=== PATIENT | female | born 1930 | race African-American/Black ===

== ENCOUNTER 2016-10-08 11:12 | Inpatient (IN) | payer MEDICARE, OTHER ==
[~2016-10-08] VITALS: Ht 157.5 cm; Wt 80.1 kg
[~2016-10-08 11:12] MED LIST: ACET-784 PO; ALEN70TA48 PO; AMLO-512 PO; ASPI81 PO; CLOP75 PO; DONE10TA PO; MEMA10TA11 PO; METO50 PO; MULT-1259 PO; NITR0.4T SL; PANT40TA25 PO; RANO500T3 PO; ROSU20 PO; SERT50TA12 PO
[2016-10-08 12:43] LABS: GLUCOSE,POINT OF CARE 78 MG/DL (70-110)
[2016-10-08] MEDS ORDERED: ALBUTEROL SULFATE 2.5 MG/0.5 ML NEB SOLUTION NEB PRN (13:45)
[2016-10-08] MEDS ORDERED: BISACODYL 10 MG RECTAL RECTAL SUPPOSITORY PR PRN (13:45)
[2016-10-08] MEDS ORDERED: ACETAMINOPHEN 325 MG TABLET PO PRN (13:45)
[2016-10-08] MEDS ORDERED: DEXTROSE 5%-0.45% SODIUM CHL 1,000 ML IV ONE (14:00)
[2016-10-08 14:13] LABS: BASOPHILS % (AUTO) 0.2 % (0.0-2.0); EOSINOPHILS % (AUTO) 1.9 % (1.0-6.0); HEMATOCRIT 38.4 % (36-46); HEMOGLOBIN 12.9 g/dL (12.0-16.0); LYMPHOCYTES # (AUTO) 1.7 K/uL (1.0-4.8); MEAN CORPUSCULAR HEMOGLOBIN 30.7 pg (26.0-34.0); MEAN CORPUSCULAR HGB CONC 33.5 G/dL (31.0-37.0); MEAN CORPUSCULAR VOLUME 92 fL (80-100); MONOCYTES # (AUTO) 0.7 K/uL (0.1-1.0); NEUTROPHILS # (AUTO) 3.9 K/uL (1.8-7.7); NEUTROPHILS % (AUTO) 60.9 % (40.0-70.0); PLATELET COUNT (AUTO) 165 K/uL (150-450); RED BLOOD CELL COUNT(AUTO) 4.19 MIL/uL (4.00-5.20); RED CELL DISTRIBUTION WIDTH 15.8 % (11.5-14.5); WHITE BLOOD COUNT (AUTO) 6.5 K/uL (4.5-11.0)
[2016-10-08] MEDS: ASPIRIN 81 MG CHEWABLE TABLET PO SCH (14:15)
[2016-10-08 14:27] LABS: PROTHROMBIN TIME 10.6 SEC (9.4-11.6)
[2016-10-08] MEDS: AmLODIPine BESYLATE 10 MG TABLET PO SCH (14:27)
[2016-10-08 14:32] LABS: ANION GAP 10 mmol/L (8-16); CALCIUM, TOTAL 9.3 mg/dL (8.8-10.5); CARBON DIOXIDE 25 mmol/L (22-29); CHLORIDE 110 mmol/L (98-107); CREATININE 1.57 mg/dL (0.60-1.30); GLOMERULAR FILTR. RATE CALC 38 mL/min (>60); SODIUM SERUM 145 mmol/L (136-145); UREA NITROGEN, BLOOD 24 mg/dL (7-18)
[2016-10-08 14:42] LABS: B-TYPE NATRIURETIC PEPTIDE 124 pg/mL (0-100)
[2016-10-08 15:02] LABS: ALANINE AMINOTRANSFERASE 20 U/L (12-78); ALBUMIN 2.9 g/dL (3.4-5.0); ASPARTATE AMINOTRANSFERASE 23 U/L (15-37); BILIRUBIN,TOTAL 0.4 mg/dL (0.1-1.0); CREATINE KINASE MB 0.6 ng/mL (0-5); CREATINE KINASE, TOTAL 90 U/L (26-192); TOTAL PROTEIN, SERUM 7.3 g/dL (6.4-8.2)
[2016-10-08 15:50] LABS: APPEARANCE,URINE CLEAR (CLEAR); GLUCOSE, URINE (UA) NEGATIVE (NEGATIVE); KETONES,URINE TRACE mg/dL (NEGATIVE); LEUKOCYTE ESTERASE ,URINE NEGATIVE (NEGATIVE); OCCULT BLOOD,URINE MODERATE (NEGATIVE); PROTEIN,URINE POS 1+ (NEGATIVE)
[2016-10-08 15:53] LABS: ADD UA MICROSCOPIC YES
[2016-10-08 16:00] LABS: SQUAMOUS EPITHELIAL CELL,UR Few /LPF (None Seen); WBC,URINE 0-2 /HPF (0-5)
[2016-10-08] MEDS ORDERED: ASPIRIN 81 MG CHEWABLE TABLET PO ONE (16:30)
[2016-10-08 17:03] VITALS: BP 162/76
[2016-10-08 18:43] VITALS: BP 153/73
[2016-10-08 19:34] VITALS: BP 160/78
[2016-10-08] MEDS: HEPARIN SODIUM,PORCINE 5,000 UNITS/ML VIAL SQ SCH (20:10)
[2016-10-08] MEDS: DOCUSATE SODIUM 100 MG CAPSULE PO SCH (20:10)
[2016-10-08] MEDS: ROSUVASTATIN CALCIUM 10 MG TABLET PO SCH (20:10)
[2016-10-08 23:43] VITALS: BP 158/70
[2016-10-09 04:29] VITALS: BP 158/79
[2016-10-09 05:25] LABS: BASOPHILS # (AUTO) 0.03 K/uL (0.00-0.20); BASOPHILS % (AUTO) 0.3 % (0.0-2.0); EOSINOPHILS # (AUTO) 0.13 K/uL (0.00-0.70); EOSINOPHILS % (AUTO) 1.51 % (1.0-6.0); HEMATOCRIT 39.7 % (36-46); HEMOGLOBIN 13.1 g/dL (12.0-16.0); LYMPHOCYTES # (AUTO) 1.8 K/uL (1.0-4.8); LYMPHOCYTES % (AUTO) 20.8 % (22.0-44.0); MEAN CORPUSCULAR HEMOGLOBIN 30.8 pg (26.0-34.0); MEAN CORPUSCULAR HGB CONC 33.1 G/dL (31.0-37.0); MEAN CORPUSCULAR VOLUME 93 fL (80-100); MONOCYTES # (AUTO) 0.8 K/uL (0.1-1.0); MONOCYTES % (AUTO) 9.5 % (2.0-9.0); NEUTROPHILS # (AUTO) 5.7 K/uL (1.8-7.7); NEUTROPHILS % (AUTO) 67.9 % (40.0-70.0); PLATELET COUNT (AUTO) 127 K/uL (150-450); RED BLOOD CELL COUNT(AUTO) 4.26 MIL/uL (4.00-5.20); RED CELL DISTRIBUTION WIDTH 16.5 % (11.5-14.5); WHITE BLOOD COUNT (AUTO) 8.4 K/uL (4.5-11.0)
[2016-10-09 07:33] VITALS: BP 157/73
[2016-10-09 07:33] LABS: CALCIUM, TOTAL 8.7 mg/dL (8.8-10.5); CREATININE 1.34 mg/dL (0.60-1.30); POTASSIUM 3.9 mmol/L (3.5-5.1)
[2016-10-09] MEDS: PANTOPRAZOLE SODIUM 40 MG DR TABLET PO SCH (08:38)
[2016-10-09] MEDS: HEPARIN SODIUM,PORCINE 5,000 UNITS/ML VIAL SQ SCH ×2 (08:38→21:39)
[2016-10-09] MEDS: AmLODIPine BESYLATE 10 MG TABLET PO SCH (08:38)
[2016-10-09] MEDS: DOCUSATE SODIUM 100 MG CAPSULE PO SCH ×2 (08:38→21:39)
[2016-10-09] MEDS: ASPIRIN 81 MG CHEWABLE TABLET PO SCH (08:38)
[2016-10-09] MEDS ORDERED: ASPIRIN 81 MG CHEWABLE TABLET PO SCH (09:45)
[2016-10-09 11:22] VITALS: BP 139/74
[2016-10-09 15:31] VITALS: BP 158/72
[2016-10-09 19:29] VITALS: BP 154/75
[2016-10-09] MEDS: ROSUVASTATIN CALCIUM 10 MG TABLET PO SCH (21:39)
[2016-10-09 23:34] VITALS: BP 139/88
[2016-10-10 04:16] VITALS: BP 151/76
[2016-10-10 07:46] VITALS: BP 134/75
[2016-10-10] MEDS: ASPIRIN 81 MG CHEWABLE TABLET PO SCH (08:34)
[2016-10-10] MEDS: HEPARIN SODIUM,PORCINE 5,000 UNITS/ML VIAL SQ SCH (08:35)
[2016-10-10] MEDS: AmLODIPine BESYLATE 10 MG TABLET PO SCH (08:35)
[2016-10-10] MEDS: DOCUSATE SODIUM 100 MG CAPSULE PO SCH (08:35)
[2016-10-10] MEDS: PANTOPRAZOLE SODIUM 40 MG DR TABLET PO SCH (08:35)
[2016-10-10 11:29] VITALS: BP 157/82
== END 2016-10-10 13:45 | disposition home or self-care (01) | DRG 682 ==
LOC: EMS 11:15 → 5S 14:28
PROVIDERS: ADMIT Internal Medicine; ATTEND Internal Medicine
DX: N17.9 Acute kidney failure, unspecified (principal); G93.40 Encephalopathy, unspecified; N18.3 Chronic kidney disease, stage 3 (moderate); K21.9 Gastro-esophageal reflux disease without esophagitis; I12.9 Hypertensive chronic kidney disease with stage 1 through stage 4 chronic kidney disease, or unspecified chronic kidney disease; F03.90 Unspecified dementia, unspecified severity, without behavioral disturbance, psychotic disturbance, mood disturbance, and anxiety; Z88.0 Allergy status to penicillin; Z79.891 Long term (current) use of opiate analgesic; Z86.73 Personal history of transient ischemic attack (TIA), and cerebral infarction without residual deficits; Z79.899 Other long term (current) drug therapy; Z79.01 Long term (current) use of anticoagulants; Z85.3 Personal history of malignant neoplasm of breast; Z88.8 Allergy status to other drugs, medicaments and biological substances; Z79.82 Long term (current) use of aspirin; Z82.49 Family history of ischemic heart disease and other diseases of the circulatory system
CPT/HCPCS: 70450; 82962; 93005; 96360; 96361; 99285; J1644

== ENCOUNTER 2016-10-10 15:04 | Emergency (ER) | payer MEDICARE, OTHER ==
[2016-10-10 16:24] VITALS: BP 150/64
== END 2016-10-10 16:54 | disposition home or self-care (01) ==
LOC: EMS 15:06
DX: F03.90 Unspecified dementia, unspecified severity, without behavioral disturbance, psychotic disturbance, mood disturbance, and anxiety (principal); I10 Essential (primary) hypertension; K21.9 Gastro-esophageal reflux disease without esophagitis; Z88.0 Allergy status to penicillin; Z88.8 Allergy status to other drugs, medicaments and biological substances
CPT/HCPCS: 99283

== ENCOUNTER 2017-08-07 15:04 | Inpatient (IN) | payer MEDICARE, OTHER ==
[~2017-08-07] VITALS: Ht 162.6 cm; Wt 74.4 kg
[~2017-08-07 15:04] MED LIST changes: -CLOP75 PO; -DONE10TA PO; -METO50 PO; -NITR0.4T SL
[2017-08-07] MEDS ORDERED: CLOP75 PO (15:40)
[2017-08-07] MEDS ORDERED: NITR.3 SL (15:40)
[2017-08-07] MEDS ORDERED: METO50 PO (15:40)
[2017-08-07] MEDS ORDERED: SODIUM CHLORIDE 0.9% 1,000 ML IV ONE (18:45)
[2017-08-07] MEDS ORDERED: AMLO-511 PO (18:48)
[2017-08-07 19:50] LABS: BASOPHILS % (AUTO) 0.4 % (0.0-2.0); HEMATOCRIT 38.7 % (36-46); HEMOGLOBIN 13.3 g/dL (12.0-16.0); LYMPHOCYTES # (AUTO) 2.2 K/uL (1.0-4.8); LYMPHOCYTES % (AUTO) 24.5 % (22.0-44.0); MEAN CORPUSCULAR HEMOGLOBIN 31.3 pg (26.0-34.0); MEAN CORPUSCULAR HGB CONC 34.2 G/dL (31.0-37.0); MEAN CORPUSCULAR VOLUME 92 fL (80-100); MONOCYTES # (AUTO) 1.1 K/uL (0.1-1.0); MONOCYTES % (AUTO) 11.8 % (2.0-9.0); NEUTROPHILS # (AUTO) 5.7 K/uL (1.8-7.7); NEUTROPHILS % (AUTO) 62.3 % (40.0-70.0); PLATELET COUNT (AUTO) 232 K/uL (150-450); RED BLOOD CELL COUNT(AUTO) 4.23 MIL/uL (4.00-5.20); RED CELL DISTRIBUTION WIDTH 15.9 % (11.5-14.5)
[2017-08-07 19:57] LABS: CALCIUM, TOTAL 9.3 mg/dL (8.8-10.5); CREATININE 1.14 mg/dL (0.60-1.30); POTASSIUM 3.8 mmol/L (3.5-5.1); PROTHROMBIN TIME 10.1 SEC (9.4-11.6)
[2017-08-07 20:03] LABS: ALBUMIN 2.7 g/dL (3.4-5.0); BILIRUBIN,TOTAL 0.6 mg/dL (0.1-1.0); TOTAL PROTEIN, SERUM 7.9 g/dL (6.4-8.2)
[2017-08-07] MEDS ORDERED: ACETAMINOPHEN 325 MG TABLET PO PRN (21:45)
[2017-08-07] MEDS ORDERED: IPRATROPIUM BROMIDE 0.5 MG/2.5 ML NEB SOLUTION NEB PRN (21:45)
[2017-08-07] MEDS ORDERED: BISACODYL 10 MG RECTAL RECTAL SUPPOSITORY PR PRN (21:45)
[2017-08-07] MEDS ORDERED: OxyCODONE HCL/ACETAMINOPHEN 5-325 MG TABLET PO PRN (21:45)
[2017-08-07] MEDS ORDERED: ALBUTEROL SULFATE 2.5 MG/0.5 ML NEB SOLUTION NEB PRN (21:45)
[2017-08-07] MEDS ORDERED: ZOLPIDEM TARTRATE 5 MG TABLET PO PRN (21:45)
[2017-08-07] MEDS ORDERED: MORPHINE SULFATE 4 MG/ML SYRINGE IVP PRN (21:45)
[2017-08-07] MEDS ORDERED: MAGNESIUM HYDROXIDE SUSPENSION 30 ML UDCUP PO PRN (21:45)
[2017-08-07] MEDS ORDERED: ONDANSETRON HCL 4 MG/2 ML VIAL IVP PRN (21:45)
[2017-08-07 22:35] VITALS: BP 192/104
[2017-08-07] MEDS: DEXTROSE 5%-0.45% SODIUM CHL 1,000 ML IV SCH (23:19)
[2017-08-07] MEDS: LABETALOL HCL 5 MG/ML 20 ML VIAL IVP PRN (23:20)
[2017-08-08 04:25] VITALS: BP 153/83
[2017-08-08 06:25] LABS: BASOPHILS % (AUTO) 0.2 % (0.0-2.0); EOSINOPHILS % (AUTO) 0.8 % (1.0-6.0); HEMATOCRIT 39.9 % (36-46); HEMOGLOBIN 13.9 g/dL (12.0-16.0); LYMPHOCYTES # (AUTO) 1.4 K/uL (1.0-4.8); LYMPHOCYTES % (AUTO) 18.4 % (22.0-44.0); MEAN CORPUSCULAR HGB CONC 34.7 G/dL (31.0-37.0); MEAN CORPUSCULAR VOLUME 92 fL (80-100); MONOCYTES % (AUTO) 12.8 % (2.0-9.0); NEUTROPHILS # (AUTO) 5.2 K/uL (1.8-7.7); NEUTROPHILS % (AUTO) 67.8 % (40.0-70.0); PLATELET COUNT (AUTO) 210 K/uL (150-450); RED BLOOD CELL COUNT(AUTO) 4.33 MIL/uL (4.00-5.20); RED CELL DISTRIBUTION WIDTH 15.7 % (11.5-14.5)
[2017-08-08 07:14] LABS: ALBUMIN 2.6 g/dL (3.4-5.0); BILIRUBIN,TOTAL 0.5 mg/dL (0.1-1.0); CREATININE 1.07 mg/dL (0.60-1.30); PHOSPHORUS 3.8 mg/dL (2.5-4.9); POTASSIUM 3.7 mmol/L (3.5-5.1); TOTAL PROTEIN, SERUM 7.8 g/dL (6.4-8.2)
[2017-08-08] MEDS: DEXTROSE 5%-0.45% SODIUM CHL 1,000 ML IV SCH (08:32)
[2017-08-08] MEDS: PANTOPRAZOLE SODIUM 40 MG DR TABLET PO SCH ×3 (08:33→09:00)
[2017-08-08 08:54] VITALS: BP 159/97
[2017-08-08 11:31] VITALS: BP 194/91
[2017-08-08] MEDS ORDERED: DIATRIZOATE MEGLU/SOD 660/100 MG/ML 120 ML BOTTLE ONE (12:56)
[2017-08-08] MEDS ORDERED: LIDOCAINE HCL/PF 1% 30 ML VIAL ONE (13:06)
[2017-08-08 14:41] VITALS: BP 196/106
[2017-08-08] MEDS: LABETALOL HCL 5 MG/ML 20 ML VIAL IVP PRN (14:41)
[2017-08-08 15:52] VITALS: BP 150/81
[2017-08-08 15:53] VITALS: BP 150/81
== END 2017-08-08 19:00 | DRG 393 ==
LOC: EMS 15:06 → 6N 18:47
PROVIDERS: ADMIT Internal Medicine; ATTEND Internal Medicine
PROC: 0D2DXUZ Change Feeding Device in Lower Intestinal Tract, External Approach (ICD-10-PCS; principal; 2017-08-08)
PROC: BD13ZZZ Fluoroscopy of Small Bowel (ICD-10-PCS; 2017-08-08)
DX: K94.23 Gastrostomy malfunction (principal); E43 Unspecified severe protein-calorie malnutrition; I11.9 Hypertensive heart disease without heart failure; F01.50 Vascular dementia, unspecified severity, without behavioral disturbance, psychotic disturbance, mood disturbance, and anxiety; R13.10 Dysphagia, unspecified; R62.7 Adult failure to thrive; K59.00 Constipation, unspecified; I25.10 Atherosclerotic heart disease of native coronary artery without angina pectoris; E78.5 Hyperlipidemia, unspecified; K21.9 Gastro-esophageal reflux disease without esophagitis; R32 Unspecified urinary incontinence; I69.391 Dysphagia following cerebral infarction; Z74.01 Bed confinement status; Z98.61 Coronary angioplasty status; Z88.0 Allergy status to penicillin; Z88.8 Allergy status to other drugs, medicaments and biological substances; Z79.82 Long term (current) use of aspirin; Z79.02 Long term (current) use of antithrombotics/antiplatelets; Z79.899 Other long term (current) drug therapy; Z68.28 Body mass index [BMI] 28.0-28.9, adult
CPT/HCPCS: 36245; 49450; 76000; 83735; 84100; 87081; 99285; J2270; J3490; J7030

== ENCOUNTER 2018-08-17 07:08 | Inpatient (IN) | payer MEDICARE, OTHER ==
[~2018-08-17] VITALS: Ht 154.9 cm; Wt 93.1 kg
[~2018-08-17 07:08] MED LIST changes: -ALEN70TA48 PO; +AMLO-511 PO; -AMLO-512 PO; +CLOP75TA3 PO; -MEMA10TA11 PO; +METO50 PO; -MULT-1259 PO; +NITR0.3T12 SL; -RANO500T3 PO; -ROSU20 PO; +ROSU20TA23 PO; -SERT50TA12 PO
[2018-08-17] MEDS ORDERED: SODIUM CHLORIDE 0.9% 1,000 ML IV ONE ×3 (07:30→08:45)
[2018-08-17] MEDS ORDERED: PIPERACILLIN/TAZO 3.375 GM/D5W 50 ML IV ONE (08:00)
[2018-08-17] MEDS ORDERED: VANCOMYCIN HCL 1 GM/D5% WATER 200 ML IV ONE (08:00)
[2018-08-17] MEDS: PROPOFOL 1000 MG/ISO-OSM 100 ML IV PRN ×2 (08:01→17:52)
[2018-08-17 08:06] LABS: BASOPHILS % (AUTO) 0.2 % (0.0-2.0); EOSINOPHILS % (AUTO) 0 % (1.0-6.0); HEMATOCRIT 40.4 % (36-46); HEMOGLOBIN 12.1 g/dL (12.0-16.0); LYMPHOCYTES # (AUTO) 1.2 K/uL (1.0-4.8); LYMPHOCYTES % (AUTO) 5.8 % (22.0-44.0); MEAN CORPUSCULAR HEMOGLOBIN 27.5 pg (26.0-34.0); MEAN CORPUSCULAR VOLUME 92 fL (80-100); MONOCYTES % (AUTO) 4.9 % (2.0-9.0); NEUTROPHILS # (AUTO) 19.1 K/uL (1.8-7.7); NEUTROPHILS % (AUTO) 89.1 % (40.0-70.0); PLATELET COUNT (AUTO) 199 K/uL (150-450); RED CELL DISTRIBUTION WIDTH 18.7 % (11.5-14.5)
[2018-08-17 08:22] LABS: AMPHET/METH SCREEN,URINE NEGATIVE (NEGATIVE); BARBITURATE SCREEN, URINE NEGATIVE (NEGATIVE); BENZODIAZEPINES SCREEN,URINE NEGATIVE (NEGATIVE); CANNABINOID SCREEN,URINE NEGATIVE (NEGATIVE); COCAINE SCREEN,URINE NEGATIVE (NEGATIVE); METHADONE SCREEN, URINE NEGATIVE (NEGATIVE); OPIATE SCREEN,URINE POSITIVE (NEGATIVE)
[2018-08-17 08:25] LABS: PHENCYCLIDINE SCREEN,URINE NEGATIVE (NEGATIVE)
[2018-08-17 08:29] LABS: PROTHROMBIN TIME 10.7 SEC (9.4-11.6)
[2018-08-17] MEDS ORDERED: ETOMIDATE 2 MG/ML 10 ML VIAL IVP ONE (08:30)
[2018-08-17] MEDS ORDERED: SUCCINYLCHOLINE CHLORIDE 20 MG/ML 10 ML VIAL IVP ONE (08:30)
[2018-08-17 08:32] LABS: BILIRUBIN,URINE NEGATIVE (NEGATIVE); GLUCOSE, URINE (UA) NEGATIVE (NEGATIVE); KETONES,URINE TRACE mg/dL (NEGATIVE); LEUKOCYTE ESTERASE ,URINE SMALL (NEGATIVE); NITRATE,URINE NEGATIVE (NEGATIVE); OCCULT BLOOD,URINE NEGATIVE (NEGATIVE); PROTEIN,URINE TRACE (NEGATIVE); UROBILINOGEN,URINE 0.2 mg/dL (<=1.0)
[2018-08-17 08:35] LABS: B-TYPE NATRIURETIC PEPTIDE 233 pg/mL (0-100); LACTIC ACID 2.8 mmol/L (0.4-2.0)
[2018-08-17 08:38] LABS: ALANINE AMINOTRANSFERASE 46 U/L (12-78); ALBUMIN 1.9 g/dL (3.4-5.0); ALKALINE PHOSPHATASE 73 U/L (46-116); ANION GAP 19 mmol/L (8-16); ASPARTATE AMINOTRANSFERASE 53 U/L (15-37); BILIRUBIN,TOTAL 0.4 mg/dL (0.1-1.0); CALCIUM, TOTAL 8.6 mg/dL (8.8-10.5); CARBON DIOXIDE 19 mmol/L (22-29); CHLORIDE 132 mmol/L (98-107); GLOMERULAR FILTR. RATE CALC 14 mL/min (>60); GLUCOSE,RANDOM 151 mg/dL (70-110); LIPASE 224 U/L (73-393); TOTAL PROTEIN, SERUM 8.4 g/dL (6.4-8.2)
[2018-08-17 08:44] LABS: POTASSIUM 6.1 mmol/L (3.5-5.1); SODIUM SERUM 170 mmol/L (136-145); UREA NITROGEN, BLOOD 120 mg/dL (7-18)
[2018-08-17 08:44] LABS: INFLUENZA TYPE A NEGATIVE FOR TYPE A (NEGATIVE); INFLUENZA TYPE B POSITIVE FOR TYPE B (NEGATIVE)
[2018-08-17 08:45] LABS: APPEARANCE,URINE HAZY (CLEAR)
[2018-08-17 08:50] LABS: BACTERIA,URINE Few /HPF (None Seen); RBC,URINE 0-2 /HPF (0-2); SQUAMOUS EPITHELIAL CELL,UR Few /LPF (None Seen)
[2018-08-17 08:51] LABS: AMORPHOUS SEDIMENT,UR Few /LPF (None Seen)
[2018-08-17 08:56] LABS: ABG CARBOXYHEMOGLOBIN 0.3 % (0.0-1.5); ABG TOTAL HEMOGLOBIN 10.1 G/dL (12.0-18.0); SOURCE, BLOOD GAS ARTERIAL; TEMPERATURE, FAHRENHEIT, BG 101.6 FAHREN (96.0-98.6)
[2018-08-17 08:58] LABS: ABG BASE EXCESS -11.5 mmol/L (-2.0-3.0); ABG HCO3 16.5 mmol/L (22.0-26.0); ABG METHEMOGLOBIN 0.1 % (0.0-1.5); ABG OXYGEN CONTENT 15.1 mL/dL (15.0-23.0); ABG OXYGEN SATURATION 99.3 % (95.0-98.0); ABG OXYHEMOGLOBIN 98.9 % (94.0-100.0); ABG PCO2 25 mmHg (35-45); ABG PH 7.364 (7.35-7.450); PO2, ARTERIAL BG 384.7 mmHg (71.0-79.0)
[2018-08-17] MEDS ORDERED: SODIUM CHLORIDE 0.9% 250 ML IV ONE ×2 (08:58→17:56)
[2018-08-17 08:59] LABS: O2 DEVICE,BLOOD GAS VENTILATOR (ROOM AIR); PEEP,BG 5 cm H2O; SITE, BLOOD GAS RT RADIAL; VT, ABG 450 ml
[2018-08-17] MEDS ORDERED: DEXTROSE 50%-WATER 25 GM/50 ML SYRINGE IVP ONE (09:00)
[2018-08-17] MEDS ORDERED: CALCIUM GLUCONATE 100 MG/ML 10 ML IVP ONE (09:00)
[2018-08-17] MEDS ORDERED: SODIUM POLYSTYRENE SULFONATE 15 GM/60 ML SUSPENSION BOTTLE PO ONE (09:00)
[2018-08-17] MEDS ORDERED: INSULIN REGULAR, HUMAN 100 UNITS/ML IVP ONE (09:00)
[2018-08-17] MEDS ORDERED: ADENOSINE 3 MG/ML 2 ML VIAL IVP ONE ×2 (09:15→09:30)
[2018-08-17] MEDS ORDERED: DILTIAZEM HCL 5 MG/ML 5 ML VIAL IVP ONE (09:30)
[2018-08-17] MEDS ORDERED: ACETAMINOPHEN 650 MG/ISO-OSM 65 ML IV ONE (09:45)
[2018-08-17] MEDS ORDERED: NOREPINEPHRINE 4 MG/D5%-WATER 250 ML IV PRN ×2 (10:00→21:41)
[2018-08-17 10:03] LABS: LACTIC ACID 2.5 mmol/L (0.4-2.0)
[2018-08-17 10:05] LABS: ALBUMIN 1.2 g/dL (3.4-5.0); BILIRUBIN,TOTAL 0.4 mg/dL (0.1-1.0); CALCIUM, TOTAL 7.5 mg/dL (8.8-10.5); CREATININE 3.62 mg/dL (0.60-1.30); POTASSIUM 4.7 mmol/L (3.5-5.1); TOTAL PROTEIN, SERUM 5.8 g/dL (6.4-8.2)
[2018-08-17 10:24] LABS: GLUCOSE,POINT OF CARE 260 MG/DL (70-110)
[2018-08-17 10:40] LABS: ALBUMIN 1.3 g/dL (3.4-5.0); BILIRUBIN,TOTAL 0.4 mg/dL (0.1-1.0); CALCIUM, TOTAL 7.5 mg/dL (8.8-10.5); CREATININE 3.53 mg/dL (0.60-1.30); POTASSIUM 5.1 mmol/L (3.5-5.1); TOTAL PROTEIN, SERUM 6.1 g/dL (6.4-8.2)
[2018-08-17] MEDS ORDERED: SODIUM BICARBONATE 150 MEQ in DEXTROSE 5%-WATER 1,000 ML IV ONE (11:00)
[2018-08-17] MEDS ORDERED: PHENYLEPHRINE 200 MG/D5%-WATER 250 ML IV PRN ×2 (11:15→21:41)
[2018-08-17] MEDS ORDERED: ETOMIDATE 2 MG/ML 10 ML VIAL IV ONE (11:17)
[2018-08-17] MEDS ORDERED: SUCCINYLCHOLINE CHLORIDE 20 MG/ML 10 ML VIAL IM ONE (11:17)
[2018-08-17] MEDS ORDERED: *CLINICAL-LEVOFLOXACIN IVPB DOSING CLINICAL ONE ×2 (13:15→21:15)
[2018-08-17] MEDS ORDERED: 0.9% SODIUM CHLORIDE 10 ML SYRINGE IVP PRN (13:15)
[2018-08-17] MEDS ORDERED: ACETAMINOPHEN 325 MG TABLET PO PRN (13:15)
[2018-08-17] MEDS ORDERED: ZOLPIDEM TARTRATE 5 MG TABLET PO PRN (13:15)
[2018-08-17] MEDS ORDERED: ONDANSETRON HCL 4 MG/2 ML VIAL IVP PRN ×2 (13:15)
[2018-08-17] MEDS ORDERED: BISACODYL 10 MG RECTAL RECTAL SUPPOSITORY PR PRN (13:15)
[2018-08-17] MEDS ORDERED: MAGNESIUM HYDROXIDE SUSPENSION 30 ML UDCUP PO PRN (13:15)
[2018-08-17 14:25] VITALS: BP 93/51
[2018-08-17 15:00] VITALS: BP 121/52
[2018-08-17 16:00] VITALS: BP 120/57
[2018-08-17] MEDS ORDERED: LEVOFLOXACIN 750 MG/D5% WATER 150 ML IV ONE (17:00)
[2018-08-17] MEDS: HEPARIN SODIUM,PORCINE 5,000 UNITS/ML VIAL SQ SCH ×2 (17:53→23:12)
[2018-08-17 19:15] LABS: ALBUMIN 1.4 g/dL (3.4-5.0); BILIRUBIN,TOTAL 0.4 mg/dL (0.1-1.0); CALCIUM, TOTAL 7.3 mg/dL (8.8-10.5); CREATININE 3.31 mg/dL (0.60-1.30); POTASSIUM 3.9 mmol/L (3.5-5.1); TOTAL PROTEIN, SERUM 5.6 g/dL (6.4-8.2)
[2018-08-17] MEDS ORDERED: DEXTROSE 5%-WATER 1,000 ML IV ONE (19:33)
[2018-08-17 20:00] VITALS: BP 97/50
[2018-08-17] MEDS ORDERED: WATER IV SCH (20:00)
[2018-08-17] MEDS ORDERED: DEXTROSE IV SCH (20:00)
[2018-08-17] MEDS ORDERED: DEXTROSE 50%-WATER 25 GM/50 ML SYRINGE IVP PRN (20:00)
[2018-08-17] MEDS ORDERED: WATER FOR INJECTION STERILE IV SCH (20:00)
[2018-08-17] MEDS: DOCUSATE SODIUM 100 MG CAPSULE PO SCH (20:11)
[2018-08-17] MEDS: INSULIN LISPRO 100 UNITS/ML SQ PRN ×2 (20:26→23:26)
[2018-08-17] MEDS: WATER FOR INJECTION,STERILE 500 ML in DEXTROSE 5%-WATER 500 ML IV SCH (21:24)
[2018-08-17] MEDS: OSELTAMIVIR PHOSPHATE 75 MG CAPSULE PO SCH (21:24)
[2018-08-17] MEDS ORDERED: VANCOMYCIN HCL 1 GM/D5% WATER 200 ML IV PRN (21:45)
[2018-08-17] MEDS ORDERED: VANCOMYCIN HCL 500 MG in DEXTROSE 5%-WATER 100 ML IV ONE (22:00)
[2018-08-17] MEDS: PIPERACILLIN SODIUM/TAZOBACTAM 2.25 GM in DEXTROSE 5%-WATER 50 ML IV SCH (23:12)
[2018-08-18] VITALS (10 sets, daily range): BP systolic 91–150; BP diastolic 43–67
[2018-08-18] MEDS: INSULIN LISPRO 100 UNITS/ML SQ PRN ×2 (04:19→20:55)
[2018-08-18] MEDS: PIPERACILLIN SODIUM/TAZOBACTAM 2.25 GM in DEXTROSE 5%-WATER 50 ML IV SCH ×3 (05:03→21:54)
[2018-08-18 05:07] LABS: HEMATOCRIT 29.3 % (36-46); HEMOGLOBIN 9.1 g/dL (12.0-16.0); MEAN CORPUSCULAR HEMOGLOBIN 27.4 pg (26.0-34.0); MEAN CORPUSCULAR HGB CONC 31.1 G/dL (31.0-37.0); MEAN CORPUSCULAR VOLUME 88 fL (80-100); PLATELET COUNT (AUTO) 142 K/uL (150-450); RED BLOOD CELL COUNT(AUTO) 3.32 MIL/uL (4.00-5.20); RED CELL DISTRIBUTION WIDTH 18.1 % (11.5-14.5)
[2018-08-18 05:13] LABS: CALCIUM, TOTAL 7.7 mg/dL (8.8-10.5); CREATININE 3.07 mg/dL (0.60-1.30); POTASSIUM 3.7 mmol/L (3.5-5.1)
[2018-08-18 05:25] LABS: BAND NEUTROPHILS % (MANUAL) 18 % (0-5); LYMPHOCYTES % (MANUAL) 7 % (22-44); MONOCYTES % (MANUAL) 3 % (2-9); SEGMENTED NEUTROPHILS % 72 % (40-70)
[2018-08-18] MEDS: WATER FOR INJECTION,STERILE 500 ML in DEXTROSE 5%-WATER 500 ML IV SCH ×2 (06:46→16:02)
[2018-08-18 06:54] LABS: GLUCOSE,POINT OF CARE 188 MG/DL (70-110)
[2018-08-18 06:54] LABS: GLUCOSE,POINT OF CARE 91 MG/DL (70-110)
[2018-08-18 06:54] LABS: GLUCOSE,POINT OF CARE 133 MG/DL (70-110)
[2018-08-18] MEDS: PANTOPRAZOLE SODIUM 40 MG DR TABLET PO SCH (08:19)
[2018-08-18] MEDS: OSELTAMIVIR PHOSPHATE 75 MG CAPSULE PO SCH (08:19)
[2018-08-18] MEDS: DOCUSATE SODIUM 100 MG CAPSULE PO SCH ×2 (08:19→20:19)
[2018-08-18] MEDS: HEPARIN SODIUM,PORCINE 5,000 UNITS/ML VIAL SQ SCH ×3 (08:19→23:28)
[2018-08-18] MEDS: MORPHINE SULFATE 2 MG/ML SYRINGE IVP PRN ×2 (13:14→22:11)
[2018-08-18 20:29] LABS: GLUCOSE,POINT OF CARE 102 MG/DL (70-110)
[2018-08-18] MEDS ORDERED: SODIUM CHLORIDE 0.9% 250 ML IV ONE (23:27)
[2018-08-19] VITALS (10 sets, daily range): BP systolic 101–144; BP diastolic 50–70
[2018-08-19] MEDS: INSULIN LISPRO 100 UNITS/ML SQ PRN ×3 (00:17→23:27)
[2018-08-19] MEDS: WATER FOR INJECTION,STERILE 500 ML in DEXTROSE 5%-WATER 500 ML IV SCH (01:50)
[2018-08-19 03:11] LABS: GLUCOSE,POINT OF CARE 101 MG/DL (70-110)
[2018-08-19 03:11] LABS: GLUCOSE,POINT OF CARE 104 MG/DL (70-110)
[2018-08-19 03:11] LABS: GLUCOSE,POINT OF CARE 95 MG/DL (70-110)
[2018-08-19 03:11] LABS: GLUCOSE,POINT OF CARE 115 MG/DL (70-110)
[2018-08-19 05:08] LABS: HEMATOCRIT 26.3 % (36-46); HEMOGLOBIN 8.3 g/dL (12.0-16.0); MEAN CORPUSCULAR HEMOGLOBIN 27.3 pg (26.0-34.0); MEAN CORPUSCULAR HGB CONC 31.5 G/dL (31.0-37.0); MEAN CORPUSCULAR VOLUME 87 fL (80-100); PLATELET COUNT (AUTO) 106 K/uL (150-450); RED BLOOD CELL COUNT(AUTO) 3.03 MIL/uL (4.00-5.20); RED CELL DISTRIBUTION WIDTH 18.1 % (11.5-14.5)
[2018-08-19] MEDS: PIPERACILLIN SODIUM/TAZOBACTAM 2.25 GM in DEXTROSE 5%-WATER 50 ML IV SCH ×3 (05:12→22:26)
[2018-08-19 05:15] LABS: CALCIUM, TOTAL 8.2 mg/dL (8.8-10.5); CREATININE 2.82 mg/dL (0.60-1.30)
[2018-08-19 06:39] LABS: GLUCOSE,POINT OF CARE 105 MG/DL (70-110)
[2018-08-19 07:06] LABS: BAND NEUTROPHILS % (MANUAL) 8 % (0-5); LYMPHOCYTES % (MANUAL) 5 % (22-44); MYELOCYTES % 1 % (0-0); SEGMENTED NEUTROPHILS % 86 % (40-70)
[2018-08-19] MEDS: OSELTAMIVIR PHOSPHATE 30 MG CAPSULE PO SCH (07:43)
[2018-08-19] MEDS: PANTOPRAZOLE SODIUM 40 MG DR TABLET PO SCH (07:43)
[2018-08-19] MEDS: HEPARIN SODIUM,PORCINE 5,000 UNITS/ML VIAL SQ SCH ×3 (07:43→23:20)
[2018-08-19] MEDS: DOCUSATE SODIUM 100 MG CAPSULE PO SCH ×2 (07:43→20:03)
[2018-08-19] MEDS: DEXTROSE 5%-WATER 1,000 ML IV SCH ×2 (11:51→22:25)
[2018-08-19] MEDS: POTASSIUM CHL 10 MEQ/WATER 50 ML IV SCH ×4 (11:51→15:00)
[2018-08-19] MEDS: MORPHINE SULFATE 2 MG/ML SYRINGE IVP PRN ×2 (15:14→18:34)
[2018-08-19] MEDS ORDERED: LEVOFLOXACIN 500 MG/D5% WATER 100 ML IV SCH (17:00)
[2018-08-19 17:23] LABS: GLUCOSE,POINT OF CARE 104 MG/DL (70-110)
[2018-08-19 17:24] LABS: GLUCOSE,POINT OF CARE 99 MG/DL (70-110)
[2018-08-19 17:24] LABS: GLUCOSE,POINT OF CARE 106 MG/DL (70-110)
[2018-08-19] MEDS: BISACODYL 10 MG RECTAL RECTAL SUPPOSITORY PR SCH (20:03)
[2018-08-19] MEDS ORDERED: SODIUM CHLORIDE 0.9% 250 ML IV ONE (22:24)
[2018-08-20] VITALS (8 sets, daily range): BP systolic 102–149; BP diastolic 44–64
[2018-08-20] MEDS: MORPHINE SULFATE 2 MG/ML SYRINGE IVP PRN (01:23)
[2018-08-20 02:04] LABS: GLUCOSE,POINT OF CARE 111 MG/DL (70-110)
[2018-08-20 04:46] LABS: EOSINOPHILS % (AUTO) 0.4 % (1.0-6.0); HEMATOCRIT 22.8 % (36-46); HEMOGLOBIN 7.2 g/dL (12.0-16.0); LYMPHOCYTES # (AUTO) 1.3 K/uL (1.0-4.8); LYMPHOCYTES % (AUTO) 7.6 % (22.0-44.0); MEAN CORPUSCULAR HEMOGLOBIN 27.7 pg (26.0-34.0); MEAN CORPUSCULAR HGB CONC 31.6 G/dL (31.0-37.0); MEAN CORPUSCULAR VOLUME 88 fL (80-100); MONOCYTES # (AUTO) 0.9 K/uL (0.1-1.0); NEUTROPHILS # (AUTO) 14.9 K/uL (1.8-7.7); PLATELET COUNT (AUTO) 92 K/uL (150-450); RED BLOOD CELL COUNT(AUTO) 2.59 MIL/uL (4.00-5.20); RED CELL DISTRIBUTION WIDTH 18.3 % (11.5-14.5)
[2018-08-20 05:08] LABS: CALCIUM, TOTAL 8.4 mg/dL (8.8-10.5); CREATININE 2.66 mg/dL (0.60-1.30); POTASSIUM 3.4 mmol/L (3.5-5.1)
[2018-08-20] MEDS: PIPERACILLIN SODIUM/TAZOBACTAM 2.25 GM in DEXTROSE 5%-WATER 50 ML IV SCH ×3 (05:11→22:18)
[2018-08-20] MEDS: INSULIN LISPRO 100 UNITS/ML SQ PRN (05:53)
[2018-08-20 06:59] LABS: GLUCOSE,POINT OF CARE 114 MG/DL (70-110)
[2018-08-20] MEDS: DEXTROSE 5%-WATER 1,000 ML IV SCH ×2 (07:20→19:01)
[2018-08-20] MEDS ORDERED: VANCOMYCIN HCL 1.25 GM in DEXTROSE 5%-WATER 250 ML IV ONE (08:00)
[2018-08-20] MEDS ORDERED: POTASSIUM CHLORIDE 20 MEQ ER TABLET ONE (08:54)
[2018-08-20] MEDS: HEPARIN SODIUM,PORCINE 5,000 UNITS/ML VIAL SQ SCH ×2 (08:56→19:03)
[2018-08-20] MEDS: PANTOPRAZOLE SODIUM 40 MG DR TABLET PO SCH (08:58)
[2018-08-20] MEDS: DOCUSATE SODIUM 100 MG CAPSULE PO SCH ×2 (08:58→20:32)
[2018-08-20] MEDS: BISACODYL 10 MG RECTAL RECTAL SUPPOSITORY PR SCH ×2 (08:58→20:32)
[2018-08-20] MEDS: OSELTAMIVIR PHOSPHATE 30 MG CAPSULE PO SCH (08:58)
[2018-08-20] MEDS ORDERED: POTASSIUM CHLORIDE 20 MEQ ER TABLET PO ONE (09:00)
[2018-08-20 14:30] LABS: GLUCOSE,POINT OF CARE 113 MG/DL (70-110)
[2018-08-20 16:23] LABS: ABG A-A DIFF O2 138.9 mmHg (10-20.0); ABG BASE EXCESS -5.8 mmol/L (-2.0-3.0); ABG CARBOXYHEMOGLOBIN 0.3 % (0.0-1.5); ABG METHEMOGLOBIN 0.3 % (0.0-1.5); ABG OXYGEN CONTENT 8.5 mL/dL (15.0-23.0); ABG OXYGEN SATURATION 98.4 % (95.0-98.0); ABG OXYHEMOGLOBIN 97.8 % (94.0-100.0); ABG PCO2 23 mmHg (35-45); ABG PH 7.494 (7.35-7.450); PO2, ARTERIAL BG 119.6 mmHg (71.0-79.0); SOURCE, BLOOD GAS ARTERIAL; TEMPERATURE, FAHRENHEIT, BG 98.6 FAHREN (96.0-98.6)
[2018-08-20 16:24] LABS: SITE, BLOOD GAS LFT RADIAL
[2018-08-20 16:25] LABS: O2 DEVICE,BLOOD GAS VENTILATOR (ROOM AIR); PEEP,BG 5 cm H2O; PRESSURE SUPPORT, BG 10 cm H2O; VENT MODE, BG CPAP (ROOM AIR)
[2018-08-20] MEDS: HYDROCODONE/ACETAMINOPHEN 5-325 MG TABLET PO PRN (22:18)
[2018-08-20 22:26] LABS: BASOPHILS % (AUTO) 0.2 % (0.0-2.0); EOSINOPHILS % (AUTO) 0.4 % (1.0-6.0); LYMPHOCYTES # (AUTO) 3.8 K/uL (1.0-4.8); LYMPHOCYTES % (AUTO) 15.2 % (22.0-44.0); MEAN CORPUSCULAR HEMOGLOBIN 27.8 pg (26.0-34.0); MEAN CORPUSCULAR HGB CONC 31.2 G/dL (31.0-37.0); MEAN CORPUSCULAR VOLUME 89 fL (80-100); MONOCYTES # (AUTO) 1.6 K/uL (0.1-1.0); MONOCYTES % (AUTO) 6.4 % (2.0-9.0); NEUTROPHILS # (AUTO) 19.3 K/uL (1.8-7.7); NEUTROPHILS % (AUTO) 77.8 % (40.0-70.0); PLATELET COUNT (AUTO) 129 K/uL (150-450); RED BLOOD CELL COUNT(AUTO) 2.11 MIL/uL (4.00-5.20); RED CELL DISTRIBUTION WIDTH 17.7 % (11.5-14.5)
[2018-08-20 22:41] LABS: HEMOGLOBIN 5.9 g/dL (12.0-16.0)
[2018-08-20 22:42] LABS: HEMATOCRIT 18.8 % (36-46)
[2018-08-20] MEDS: PANTOPRAZOLE SODIUM 80 MG in SODIUM CHLORIDE 0.9% 100 ML IV SCH (22:58)
[2018-08-21] VITALS (20 sets, daily range): BP systolic 93–138; BP diastolic 39–81
[2018-08-21] MEDS ORDERED: SODIUM CHLORIDE 0.9% 500 ML IV ONE ×2 (00:48→14:20)
[2018-08-21] MEDS: DEXTROSE 5%-WATER 1,000 ML IV SCH ×3 (03:17→23:17)
[2018-08-21 04:30] LABS: HEMOGLOBIN 7.3 g/dL (12.0-16.0); MEAN CORPUSCULAR HEMOGLOBIN 28.1 pg (26.0-34.0); MEAN CORPUSCULAR HGB CONC 31.7 G/dL (31.0-37.0); MEAN CORPUSCULAR VOLUME 89 fL (80-100); RED BLOOD CELL COUNT(AUTO) 2.59 MIL/uL (4.00-5.20)
[2018-08-21 04:41] LABS: CALCIUM, TOTAL 7.9 mg/dL (8.8-10.5); CREATININE 2.59 mg/dL (0.60-1.30); POTASSIUM 3.7 mmol/L (3.5-5.1)
[2018-08-21 05:01] LABS: PLATELET COUNT (AUTO) 85 K/uL (150-450)
[2018-08-21 05:03] LABS: BAND NEUTROPHILS % (MANUAL) 11 % (0-5); LYMPHOCYTES % (MANUAL) 8 % (22-44); MONOCYTES % (MANUAL) 5 % (2-9); MYELOCYTES % 1 % (0-0); SEGMENTED NEUTROPHILS % 75 % (40-70)
[2018-08-21] MEDS: PIPERACILLIN SODIUM/TAZOBACTAM 2.25 GM in DEXTROSE 5%-WATER 50 ML IV SCH (05:25)
[2018-08-21] MEDS: PANTOPRAZOLE SODIUM 80 MG in SODIUM CHLORIDE 0.9% 100 ML IV SCH ×2 (05:26→18:05)
[2018-08-21] MEDS ORDERED: SODIUM CHLORIDE 0.9% 250 ML IV ONE (05:32)
[2018-08-21 06:45] LABS: GLUCOSE,POINT OF CARE 124 MG/DL (70-110)
[2018-08-21 06:45] LABS: GLUCOSE,POINT OF CARE 106 MG/DL (70-110)
[2018-08-21 06:49] LABS: GLUCOSE,POINT OF CARE 117 MG/DL (70-110)
[2018-08-21] MEDS: OSELTAMIVIR PHOSPHATE 30 MG CAPSULE PO SCH (08:38)
[2018-08-21] MEDS: DOCUSATE SODIUM 100 MG CAPSULE PO SCH ×2 (08:39→20:08)
[2018-08-21] MEDS: MORPHINE SULFATE 2 MG/ML SYRINGE IVP PRN (11:18)
[2018-08-21 12:23] LABS: MEAN CORPUSCULAR HEMOGLOBIN 27.7 pg (26.0-34.0); MEAN CORPUSCULAR HGB CONC 31.7 G/dL (31.0-37.0); MEAN CORPUSCULAR VOLUME 87 fL (80-100); PLATELET COUNT (AUTO) 84 K/uL (150-450); RED BLOOD CELL COUNT(AUTO) 2.26 MIL/uL (4.00-5.20); RED CELL DISTRIBUTION WIDTH 16.1 % (11.5-14.5)
[2018-08-21 12:33] LABS: HEMATOCRIT 19.7 % (36-46); HEMOGLOBIN 6.2 g/dL (12.0-16.0)
[2018-08-21 12:55] LABS: BAND NEUTROPHILS % (MANUAL) 9 % (0-5); LYMPHOCYTES % (MANUAL) 6 % (22-44); METAMYELOCYTES % 5 % (0-0); MONOCYTES % (MANUAL) 1 % (2-9); SEGMENTED NEUTROPHILS % 79 % (40-70)
[2018-08-21] MEDS: CeFAZolin 1 GM/DEXTROSE 50 ML IV SCH (14:25)
[2018-08-21 20:28] LABS: HEMATOCRIT 22.2 % (36-46); HEMOGLOBIN 7.3 g/dL (12.0-16.0); MEAN CORPUSCULAR HEMOGLOBIN 28.6 pg (26.0-34.0); MEAN CORPUSCULAR HGB CONC 32.7 G/dL (31.0-37.0); MEAN CORPUSCULAR VOLUME 87 fL (80-100); RED BLOOD CELL COUNT(AUTO) 2.54 MIL/uL (4.00-5.20); RED CELL DISTRIBUTION WIDTH 16.1 % (11.5-14.5)
[2018-08-21 20:50] LABS: GLUCOSE,POINT OF CARE 103 MG/DL (70-110)
[2018-08-21 20:50] LABS: GLUCOSE,POINT OF CARE 107 MG/DL (70-110)
[2018-08-21 20:53] LABS: PLATELET COUNT (AUTO) 78 K/uL (150-450)
[2018-08-21 20:57] LABS: BAND NEUTROPHILS % (MANUAL) 13 % (0-5); LYMPHOCYTES % (MANUAL) 6 % (22-44); MONOCYTES % (MANUAL) 4 % (2-9); REACTIVE LYMPHOCYTES 2 % (0-0); SEGMENTED NEUTROPHILS % 75 % (40-70)
[2018-08-21 20:58] LABS: PLATELET MORPHOLOGY COMMENT DECREASED
[2018-08-22] VITALS (8 sets, daily range): BP systolic 120–172; BP diastolic 55–88
[2018-08-22] MEDS: HYDROCODONE/ACETAMINOPHEN 5-325 MG TABLET PO PRN ×3 (01:14→20:17)
[2018-08-22] MEDS: CeFAZolin 1 GM/DEXTROSE 50 ML IV SCH ×2 (01:15→13:38)
[2018-08-22] MEDS: PANTOPRAZOLE SODIUM 80 MG in SODIUM CHLORIDE 0.9% 100 ML IV SCH ×3 (01:15→22:03)
[2018-08-22 04:45] LABS: HEMATOCRIT 21.9 % (36-46); HEMOGLOBIN 7.4 g/dL (12.0-16.0); MEAN CORPUSCULAR HEMOGLOBIN 29.6 pg (26.0-34.0); MEAN CORPUSCULAR HGB CONC 33.9 G/dL (31.0-37.0); MEAN CORPUSCULAR VOLUME 87 fL (80-100); RED CELL DISTRIBUTION WIDTH 16.1 % (11.5-14.5)
[2018-08-22 04:50] LABS: PLATELET COUNT (AUTO) 81 K/uL (150-450)
[2018-08-22 04:52] LABS: BAND NEUTROPHILS % (MANUAL) 4 % (0-5); EOSINOPHILS % (MANUAL) 1 % (1-6); LYMPHOCYTES % (MANUAL) 8 % (22-44); MONOCYTES % (MANUAL) 5 % (2-9); SEGMENTED NEUTROPHILS % 82 % (40-70)
[2018-08-22 04:56] LABS: CREATININE 2.37 mg/dL (0.60-1.30); POTASSIUM 3.5 mmol/L (3.5-5.1); VANCOMYCIN,RANDOM 15.3 mcg/mL (25.0-50.0)
[2018-08-22 07:09] LABS: GLUCOSE,POINT OF CARE 115 MG/DL (70-110)
[2018-08-22 07:09] LABS: GLUCOSE,POINT OF CARE 96 MG/DL (70-110)
[2018-08-22] MEDS: DOCUSATE SODIUM 100 MG CAPSULE PO SCH ×2 (08:31→20:14)
[2018-08-22] MEDS: OSELTAMIVIR PHOSPHATE 30 MG CAPSULE PO SCH (08:31)
[2018-08-22] MEDS ORDERED: VANCOMYCIN HCL 1.25 GM in DEXTROSE 5%-WATER 250 ML IV ONE (09:00)
[2018-08-22] MEDS: DEXTROSE 5%-WATER 1,000 ML IV SCH ×2 (10:17→20:16)
[2018-08-22] MEDS: HydrALAZINE HCL 20 MG/ML VIAL IVP PRN ×2 (12:41→18:42)
[2018-08-22 16:26] LABS: HEMOGLOBIN 7.5 g/dL (12.0-16.0); MEAN CORPUSCULAR HEMOGLOBIN 28.7 pg (26.0-34.0); MEAN CORPUSCULAR HGB CONC 32.5 G/dL (31.0-37.0); MEAN CORPUSCULAR VOLUME 88 fL (80-100); PLATELET COUNT (AUTO) 81 K/uL (150-450); RED CELL DISTRIBUTION WIDTH 16.8 % (11.5-14.5)
[2018-08-22 17:55] LABS: GLUCOSE,POINT OF CARE 102 MG/DL (70-110)
[2018-08-22 17:55] LABS: GLUCOSE,POINT OF CARE 121 MG/DL (70-110)
[2018-08-22 19:43] LABS: BAND NEUTROPHILS % (MANUAL) 5 % (0-5); MONOCYTES % (MANUAL) 1 % (2-9); MYELOCYTES % 2 % (0-0)
[2018-08-22 19:45] LABS: LYMPHOCYTES % (MANUAL) 5 % (22-44); SEGMENTED NEUTROPHILS % 87 % (40-70)
[2018-08-22] MEDS: METOPROLOL TARTRATE 25 MG TABLET PO SCH (20:16)
[2018-08-22] MEDS: INSULIN LISPRO 100 UNITS/ML SQ PRN (23:17)
[2018-08-22] MEDS: MORPHINE SULFATE 2 MG/ML SYRINGE IVP PRN (23:23)
[2018-08-23] VITALS (10 sets, daily range): BP systolic 120–152; BP diastolic 54–103
[2018-08-23] MEDS: HYDROCODONE/ACETAMINOPHEN 5-325 MG TABLET PO PRN (01:43)
[2018-08-23] MEDS: CeFAZolin 1 GM/DEXTROSE 50 ML IV SCH ×2 (01:43→14:59)
[2018-08-23 02:29] LABS: GLUCOSE,POINT OF CARE 115 MG/DL (70-110)
[2018-08-23] MEDS: INSULIN LISPRO 100 UNITS/ML SQ PRN ×2 (04:26→23:33)
[2018-08-23 04:33] LABS: HEMATOCRIT 23.4 % (36-46); HEMOGLOBIN 7.6 g/dL (12.0-16.0); MEAN CORPUSCULAR HEMOGLOBIN 28.9 pg (26.0-34.0); MEAN CORPUSCULAR HGB CONC 32.6 G/dL (31.0-37.0); MEAN CORPUSCULAR VOLUME 88 fL (80-100); PLATELET COUNT (AUTO) 87 K/uL (150-450); RED BLOOD CELL COUNT(AUTO) 2.64 MIL/uL (4.00-5.20); RED CELL DISTRIBUTION WIDTH 16.4 % (11.5-14.5)
[2018-08-23 04:42] LABS: CALCIUM, TOTAL 8.3 mg/dL (8.8-10.5); CREATININE 1.98 mg/dL (0.60-1.30); POTASSIUM 3.6 mmol/L (3.5-5.1)
[2018-08-23 04:56] LABS: BAND NEUTROPHILS % (MANUAL) 3 % (0-5); LYMPHOCYTES % (MANUAL) 7 % (22-44); MONOCYTES % (MANUAL) 5 % (2-9); MYELOCYTES % 3 % (0-0); SEGMENTED NEUTROPHILS % 82 % (40-70)
[2018-08-23 06:59] LABS: GLUCOSE,POINT OF CARE 117 MG/DL (70-110)
[2018-08-23] MEDS: DOCUSATE SODIUM 100 MG CAPSULE PO SCH ×2 (08:09→20:22)
[2018-08-23] MEDS: PANTOPRAZOLE SODIUM 80 MG in SODIUM CHLORIDE 0.9% 100 ML IV SCH ×2 (08:13→17:45)
[2018-08-23] MEDS: METOPROLOL TARTRATE 25 MG TABLET PO SCH ×2 (08:13→20:22)
[2018-08-23 13:24] LABS: GLUCOSE,POINT OF CARE 98 MG/DL (70-110)
[2018-08-23] MEDS ORDERED: MORPHINE SULFATE 2 MG/ML SYRINGE IVP ONE ×2 (14:30)
[2018-08-23] MEDS ORDERED: SODIUM CHLORIDE 0.9% 250 ML IV ONE (14:53)
[2018-08-23 17:14] LABS: GLUCOSE,POINT OF CARE 103 MG/DL (70-110)
[2018-08-23 17:47] LABS: HEMATOCRIT 21.7 % (36-46); HEMOGLOBIN 7.1 g/dL (12.0-16.0); MEAN CORPUSCULAR HEMOGLOBIN 28.7 pg (26.0-34.0); MEAN CORPUSCULAR HGB CONC 32.5 G/dL (31.0-37.0); MEAN CORPUSCULAR VOLUME 88 fL (80-100); PLATELET COUNT (AUTO) 108 K/uL (150-450); RED BLOOD CELL COUNT(AUTO) 2.46 MIL/uL (4.00-5.20); RED CELL DISTRIBUTION WIDTH 16.3 % (11.5-14.5)
[2018-08-23 18:59] LABS: BAND NEUTROPHILS % (MANUAL) 4 % (0-5); EOSINOPHILS % (MANUAL) 1 % (1-6); LYMPHOCYTES % (MANUAL) 5 % (22-44); METAMYELOCYTES % 1 % (0-0); MONOCYTES % (MANUAL) 6 % (2-9); MYELOCYTES % 1 % (0-0); SEGMENTED NEUTROPHILS % 82 % (40-70)
[2018-08-24] VITALS: BP 172/59
[2018-08-24] MEDS: LORazepam 2 MG/ML VIAL IVP PRN (00:05)
[2018-08-24] MEDS: CeFAZolin 1 GM/DEXTROSE 50 ML IV SCH ×2 (01:44→15:12)
[2018-08-24] MEDS: PANTOPRAZOLE SODIUM 80 MG in SODIUM CHLORIDE 0.9% 100 ML IV SCH ×2 (01:47→13:48)
[2018-08-24 04:00] VITALS: BP 146/67
[2018-08-24] MEDS: INSULIN LISPRO 100 UNITS/ML SQ PRN ×2 (04:41→23:27)
[2018-08-24 05:04] LABS: HEMATOCRIT 22.6 % (36-46); HEMOGLOBIN 7.4 g/dL (12.0-16.0); MEAN CORPUSCULAR HEMOGLOBIN 29.7 pg (26.0-34.0); MEAN CORPUSCULAR HGB CONC 32.6 G/dL (31.0-37.0); MEAN CORPUSCULAR VOLUME 91 fL (80-100); PLATELET COUNT (AUTO) 122 K/uL (150-450); RED BLOOD CELL COUNT(AUTO) 2.48 MIL/uL (4.00-5.20); RED CELL DISTRIBUTION WIDTH 16.7 % (11.5-14.5)
[2018-08-24 05:30] LABS: CALCIUM, TOTAL 8.4 mg/dL (8.8-10.5); CREATININE 1.62 mg/dL (0.60-1.30); VANCOMYCIN,RANDOM 16.8 mcg/mL (25.0-50.0)
[2018-08-24 05:54] LABS: POTASSIUM 3.9 mmol/L (3.5-5.1)
[2018-08-24 07:14] LABS: GLUCOSE,POINT OF CARE 96 MG/DL (70-110)
[2018-08-24 07:14] LABS: GLUCOSE,POINT OF CARE 120 MG/DL (70-110)
[2018-08-24 07:20] LABS: BAND NEUTROPHILS % (MANUAL) 3 % (0-5); EOSINOPHILS % (MANUAL) 1 % (1-6); LYMPHOCYTES % (MANUAL) 9 % (22-44); MONOCYTES % (MANUAL) 7 % (2-9); MYELOCYTES % 1 % (0-0); SEGMENTED NEUTROPHILS % 79 % (40-70)
[2018-08-24 08:00] VITALS: BP 151/66
[2018-08-24] MEDS ORDERED: VANCOMYCIN HCL 1 GM/D5% WATER 200 ML IV ONE (09:00)
[2018-08-24] MEDS: METOPROLOL TARTRATE 25 MG TABLET PO SCH ×2 (09:30→20:27)
[2018-08-24] MEDS: MULTIVITAMINS WITH MINERALS, THERAPEUTIC 15 ML UDCUP NG SCH (09:30)
[2018-08-24] MEDS: DOCUSATE SODIUM 100 MG CAPSULE PO SCH ×2 (09:30→20:27)
[2018-08-24 12:00] VITALS: BP 142/61
[2018-08-24 13:49] LABS: GLUCOSE,POINT OF CARE 100 MG/DL (70-110)
[2018-08-24 16:00] VITALS: BP 165/104
[2018-08-24] MEDS ORDERED: HEPARIN SODIUM 1000 UNITS/NS 500 ML ONE (18:45)
[2018-08-24 20:00] VITALS: BP 135/89
[2018-08-24] MEDS ORDERED: SODIUM CHLORIDE 0.9% 250 ML IV ONE (20:10)
[2018-08-25] VITALS: BP 162/68
[2018-08-25] MEDS: PANTOPRAZOLE SODIUM 80 MG in SODIUM CHLORIDE 0.9% 100 ML IV SCH (00:23)
[2018-08-25] MEDS: HydrALAZINE HCL 20 MG/ML VIAL IVP PRN (00:33)
[2018-08-25] MEDS: CeFAZolin 1 GM/DEXTROSE 50 ML IV SCH (01:08)
[2018-08-25 02:44] LABS: GLUCOSE,POINT OF CARE 93 MG/DL (70-110)
[2018-08-25 02:44] LABS: GLUCOSE,POINT OF CARE 96 MG/DL (70-110)
[2018-08-25] MEDS: ACETAMINOPHEN 325 MG TABLET PO PRN (03:31)
[2018-08-25 04:00] VITALS: BP 137/57
[2018-08-25] MEDS: INSULIN LISPRO 100 UNITS/ML SQ PRN (04:28)
[2018-08-25 05:05] LABS: HEMATOCRIT 22.4 % (36-46); HEMOGLOBIN 7.3 g/dL (12.0-16.0); MEAN CORPUSCULAR HEMOGLOBIN 29.8 pg (26.0-34.0); MEAN CORPUSCULAR HGB CONC 32.5 G/dL (31.0-37.0); MEAN CORPUSCULAR VOLUME 92 fL (80-100); PLATELET COUNT (AUTO) 143 K/uL (150-450); RED BLOOD CELL COUNT(AUTO) 2.44 MIL/uL (4.00-5.20); RED CELL DISTRIBUTION WIDTH 16.7 % (11.5-14.5)
[2018-08-25 05:12] LABS: CALCIUM, TOTAL 8.3 mg/dL (8.8-10.5); CREATININE 1.44 mg/dL (0.60-1.30); POTASSIUM 4.2 mmol/L (3.5-5.1)
[2018-08-25 05:42] LABS: BAND NEUTROPHILS % (MANUAL) 4 % (0-5); LYMPHOCYTES % (MANUAL) 11 % (22-44); METAMYELOCYTES % 1 % (0-0); MONOCYTES % (MANUAL) 3 % (2-9); SEGMENTED NEUTROPHILS % 81 % (40-70)
[2018-08-25 07:44] LABS: GLUCOSE,POINT OF CARE 95 MG/DL (70-110)
[2018-08-25 08:00] VITALS: BP 124/59
[2018-08-25] MEDS: DOCUSATE SODIUM 100 MG CAPSULE PO SCH ×2 (09:40→21:01)
[2018-08-25] MEDS: METOPROLOL TARTRATE 25 MG TABLET PO SCH ×2 (09:40→21:01)
[2018-08-25] MEDS: MULTIVITAMINS WITH MINERALS, THERAPEUTIC 15 ML UDCUP NG SCH (09:43)
[2018-08-25 12:00] VITALS: BP 137/56
[2018-08-25 15:04] LABS: GLUCOSE,POINT OF CARE 94 MG/DL (70-110)
[2018-08-25 16:00] VITALS: BP 128/59
[2018-08-25] MEDS: PIPERACILLIN SODIUM/TAZOBACTAM 2.25 GM in DEXTROSE 5%-WATER 50 ML IV SCH ×2 (16:57→19:58)
[2018-08-25 20:00] VITALS: BP 155/66
[2018-08-25] MEDS: PANTOPRAZOLE SODIUM 40 MG DR TABLET PO SCH (21:01)
[2018-08-26] VITALS (15 sets, daily range): BP systolic 138–155; BP diastolic 54–71
[2018-08-26] MEDS: PIPERACILLIN SODIUM/TAZOBACTAM 2.25 GM in DEXTROSE 5%-WATER 50 ML IV SCH ×4 (01:34→20:57)
[2018-08-26] MEDS: HYDROCODONE/ACETAMINOPHEN 5-325 MG TABLET PO PRN ×2 (04:01→14:30)
[2018-08-26 05:10] LABS: ALBUMIN 1.3 g/dL (3.4-5.0); BILIRUBIN,TOTAL 0.4 mg/dL (0.1-1.0); CREATININE 1.47 mg/dL (0.60-1.30); POTASSIUM 4.5 mmol/L (3.5-5.1); TOTAL PROTEIN, SERUM 5.7 g/dL (6.4-8.2)
[2018-08-26 05:18] LABS: MEAN CORPUSCULAR HEMOGLOBIN 29.5 pg (26.0-34.0); MEAN CORPUSCULAR HGB CONC 31.9 G/dL (31.0-37.0); MEAN CORPUSCULAR VOLUME 92 fL (80-100); PLATELET COUNT (AUTO) 154 K/uL (150-450); RED BLOOD CELL COUNT(AUTO) 2.05 MIL/uL (4.00-5.20); RED CELL DISTRIBUTION WIDTH 17.7 % (11.5-14.5)
[2018-08-26 05:22] LABS: HEMOGLOBIN 6.1 g/dL (12.0-16.0)
[2018-08-26 05:28] LABS: BAND NEUTROPHILS % (MANUAL) 6 % (0-5); LYMPHOCYTES % (MANUAL) 15 % (22-44); MONOCYTES % (MANUAL) 6 % (2-9); SEGMENTED NEUTROPHILS % 73 % (40-70)
[2018-08-26 05:45] LABS: GLUCOSE,POINT OF CARE 96 MG/DL (70-110)
[2018-08-26 05:45] LABS: GLUCOSE,POINT OF CARE 101 MG/DL (70-110)
[2018-08-26] MEDS ORDERED: SODIUM CHLORIDE 0.9% 500 ML IV ONE (06:28)
[2018-08-26] MEDS ORDERED: VANCOMYCIN HCL 1 GM/D5% WATER 200 ML IV SCH (08:00)
[2018-08-26] MEDS: DOCUSATE SODIUM 100 MG CAPSULE PO SCH ×2 (09:24→21:00)
[2018-08-26] MEDS: METOPROLOL TARTRATE 25 MG TABLET PO SCH ×2 (09:24→20:56)
[2018-08-26] MEDS: PANTOPRAZOLE SODIUM 40 MG DR TABLET PO SCH ×2 (09:24→20:56)
[2018-08-26] MEDS: MULTIVITAMINS WITH MINERALS, THERAPEUTIC 15 ML UDCUP NG SCH (09:25)
[2018-08-26] MEDS ORDERED: BUMETANIDE 0.25 MG/ML 4 ML VIAL IVP ONE (09:45)
[2018-08-26 14:20] LABS: GLUCOSE,POINT OF CARE 87 MG/DL (70-110)
[2018-08-27] VITALS: BP 153/71
[2018-08-27] MEDS ORDERED: SODIUM CHLORIDE 0.9% 250 ML IV ONE ×2 (02:11→20:33)
[2018-08-27] MEDS: PIPERACILLIN SODIUM/TAZOBACTAM 2.25 GM in DEXTROSE 5%-WATER 50 ML IV SCH ×4 (02:22→20:36)
[2018-08-27 04:00] VITALS: BP 163/68
[2018-08-27] MEDS: LORazepam 2 MG/ML VIAL IVP PRN (04:11)
[2018-08-27] MEDS: HydrALAZINE HCL 20 MG/ML VIAL IVP PRN (06:09)
[2018-08-27 06:14] LABS: HEMATOCRIT 24.2 % (36-46); HEMOGLOBIN 7.8 g/dL (12.0-16.0); MEAN CORPUSCULAR HEMOGLOBIN 29.3 pg (26.0-34.0); MEAN CORPUSCULAR HGB CONC 32.1 G/dL (31.0-37.0); MEAN CORPUSCULAR VOLUME 91 fL (80-100); PLATELET COUNT (AUTO) 149 K/uL (150-450); RED BLOOD CELL COUNT(AUTO) 2.66 MIL/uL (4.00-5.20); RED CELL DISTRIBUTION WIDTH 16.9 % (11.5-14.5)
[2018-08-27 06:49] LABS: GLUCOSE,POINT OF CARE 113 MG/DL (70-110)
[2018-08-27 06:49] LABS: GLUCOSE,POINT OF CARE 98 MG/DL (70-110)
[2018-08-27 06:49] LABS: GLUCOSE,POINT OF CARE 98 MG/DL (70-110)
[2018-08-27 07:09] LABS: BAND NEUTROPHILS % (MANUAL) 5 % (0-5); EOSINOPHILS % (MANUAL) 1 % (1-6); LYMPHOCYTES % (MANUAL) 11 % (22-44); MONOCYTES % (MANUAL) 5 % (2-9); SEGMENTED NEUTROPHILS % 78 % (40-70)
[2018-08-27 08:00] VITALS: BP 135/64
[2018-08-27] MEDS: MULTIVITAMINS WITH MINERALS, THERAPEUTIC 15 ML UDCUP NG SCH (08:57)
[2018-08-27] MEDS: DOCUSATE SODIUM 100 MG CAPSULE PO SCH ×2 (08:59→20:36)
[2018-08-27] MEDS: PANTOPRAZOLE SODIUM 40 MG DR TABLET PO SCH ×2 (08:59→20:35)
[2018-08-27] MEDS: METOPROLOL TARTRATE 25 MG TABLET PO SCH ×2 (08:59→20:35)
[2018-08-27 09:00] LABS: CALCIUM, TOTAL 8.4 mg/dL (8.8-10.5); CREATININE 1.57 mg/dL (0.60-1.30); POTASSIUM 4.5 mmol/L (3.5-5.1)
[2018-08-27 12:00] VITALS: BP 124/50
[2018-08-27 16:00] VITALS: BP 116/49
[2018-08-27 17:29] LABS: GLUCOSE,POINT OF CARE 95 MG/DL (70-110)
[2018-08-27 20:00] VITALS: BP 142/68
[2018-08-27] MEDS: HYDROCODONE/ACETAMINOPHEN 5-325 MG TABLET PO PRN (22:08)
[2018-08-28] VITALS (10 sets, daily range): BP systolic 138–164; BP diastolic 62–92
[2018-08-28] MEDS: PIPERACILLIN SODIUM/TAZOBACTAM 2.25 GM in DEXTROSE 5%-WATER 50 ML IV SCH ×4 (03:09→21:17)
[2018-08-28 04:48] LABS: HEMATOCRIT 23.3 % (36-46); HEMOGLOBIN 7.5 g/dL (12.0-16.0); MEAN CORPUSCULAR HEMOGLOBIN 29.5 pg (26.0-34.0); MEAN CORPUSCULAR HGB CONC 32.4 G/dL (31.0-37.0); MEAN CORPUSCULAR VOLUME 91 fL (80-100); PLATELET COUNT (AUTO) 165 K/uL (150-450); RED BLOOD CELL COUNT(AUTO) 2.56 MIL/uL (4.00-5.20); RED CELL DISTRIBUTION WIDTH 17.1 % (11.5-14.5)
[2018-08-28 05:17] LABS: BAND NEUTROPHILS % (MANUAL) 9 % (0-5); BASOPHILS % (MANUAL) 1 % (0-2); EOSINOPHILS % (MANUAL) 2 % (1-6); LYMPHOCYTES % (MANUAL) 14 % (22-44); MONOCYTES % (MANUAL) 4 % (2-9); MYELOCYTES % 1 % (0-0); SEGMENTED NEUTROPHILS % 69 % (40-70)
[2018-08-28 06:59] LABS: GLUCOSE,POINT OF CARE 109 MG/DL (70-110)
[2018-08-28] MEDS: DOCUSATE SODIUM 100 MG CAPSULE PO SCH ×2 (07:59→21:00)
[2018-08-28] MEDS: MULTIVITAMINS WITH MINERALS, THERAPEUTIC 15 ML UDCUP NG SCH (08:00)
[2018-08-28] MEDS: METOPROLOL TARTRATE 25 MG TABLET PO SCH ×2 (08:00→21:17)
[2018-08-28] MEDS: HydrALAZINE HCL 20 MG/ML VIAL IVP PRN (09:32)
[2018-08-28] MEDS: LORazepam 2 MG/ML VIAL IVP PRN ×2 (09:53→18:21)
[2018-08-28] MEDS: MORPHINE SULFATE 2 MG/ML SYRINGE IVP PRN (10:00)
[2018-08-28] MEDS: FAMOTIDINE 10 MG/ML 2 ML VIAL IVP SCH (10:18)
[2018-08-28 12:19] LABS: GLUCOSE,POINT OF CARE 128 MG/DL (70-110)
[2018-08-28] MEDS: HYDROCODONE/ACETAMINOPHEN 5-325 MG TABLET PO PRN (15:44)
[2018-08-28 18:14] LABS: GLUCOSE,POINT OF CARE 91 MG/DL (70-110)
[2018-08-28] MEDS ORDERED: SODIUM CHLORIDE 0.9% 250 ML IV ONE (21:31)
[2018-08-29] VITALS (9 sets, daily range): BP systolic 116–161; BP diastolic 60–78
[2018-08-29] MEDS: PIPERACILLIN SODIUM/TAZOBACTAM 2.25 GM in DEXTROSE 5%-WATER 50 ML IV SCH ×4 (02:16→21:21)
[2018-08-29] MEDS: HydrALAZINE HCL 20 MG/ML VIAL IVP PRN (02:16)
[2018-08-29 04:49] LABS: HEMATOCRIT 23.7 % (36-46); HEMOGLOBIN 7.9 g/dL (12.0-16.0); MEAN CORPUSCULAR HEMOGLOBIN 30.4 pg (26.0-34.0); MEAN CORPUSCULAR HGB CONC 33.3 G/dL (31.0-37.0); MEAN CORPUSCULAR VOLUME 91 fL (80-100); PLATELET COUNT (AUTO) 176 K/uL (150-450); RED BLOOD CELL COUNT(AUTO) 2.59 MIL/uL (4.00-5.20); RED CELL DISTRIBUTION WIDTH 17.7 % (11.5-14.5)
[2018-08-29 04:56] LABS: CALCIUM, TOTAL 8.6 mg/dL (8.8-10.5); CREATININE 1.54 mg/dL (0.60-1.30); POTASSIUM 4.1 mmol/L (3.5-5.1)
[2018-08-29 06:10] LABS: BAND NEUTROPHILS % (MANUAL) 0 % (0-5)
[2018-08-29 06:12] LABS: LYMPHOCYTES % (MANUAL) 4 % (22-44); MONOCYTES % (MANUAL) 6 % (2-9); SEGMENTED NEUTROPHILS % 90 % (40-70)
[2018-08-29] MEDS: MORPHINE SULFATE 2 MG/ML SYRINGE IVP PRN ×2 (08:05→17:39)
[2018-08-29] MEDS: METOPROLOL TARTRATE 25 MG TABLET PO SCH ×2 (09:00→21:21)
[2018-08-29] MEDS: DOCUSATE SODIUM 100 MG CAPSULE PO SCH ×2 (09:00→21:21)
[2018-08-29] MEDS: MULTIVITAMINS WITH MINERALS, THERAPEUTIC 15 ML UDCUP NG SCH (09:00)
[2018-08-29] MEDS: FAMOTIDINE 10 MG/ML 2 ML VIAL IVP SCH (09:46)
[2018-08-29] MEDS: HYDROCODONE/ACETAMINOPHEN 5-325 MG TABLET PO PRN (21:20)
[2018-08-29 21:24] LABS: GLUCOSE,POINT OF CARE 82 MG/DL (70-110)
[2018-08-30] VITALS (8 sets, daily range): BP systolic 124–148; BP diastolic 63–79
[2018-08-30] MEDS ORDERED: ONDANSETRON HCL 4 MG/2 ML VIAL IVP ONE (00:34)
[2018-08-30] MEDS ORDERED: 0.9% SODIUM CHLORIDE 10 ML VIAL IVP ONE (00:34)
[2018-08-30] MEDS ORDERED: ROCURONIUM BROMIDE 10 MG/ML 5 ML VIAL IVP ONE (00:34)
[2018-08-30] MEDS ORDERED: PHENYLEPHRINE HCL 10 MG/ML VIAL IVP ONE (00:34)
[2018-08-30] MEDS ORDERED: MIDAZOLAM HCL 2 MG/2 ML VIAL IVP ONE (00:34)
[2018-08-30] MEDS ORDERED: EPHEDrine SULFATE 50 MG/ML VIAL IM ONE (00:34)
[2018-08-30] MEDS ORDERED: KETAMINE HCL 50 MG/ML 10 ML VIAL IVP ONE (00:34)
[2018-08-30] MEDS: PIPERACILLIN SODIUM/TAZOBACTAM 2.25 GM in DEXTROSE 5%-WATER 50 ML IV SCH ×4 (02:09→21:18)
[2018-08-30] MEDS: MORPHINE SULFATE 2 MG/ML SYRINGE IVP PRN ×2 (07:44→12:06)
[2018-08-30] MEDS ORDERED: SODIUM CHLORIDE 0.9% 250 ML IV ONE (07:59)
[2018-08-30] MEDS: MULTIVITAMINS WITH MINERALS, THERAPEUTIC 15 ML UDCUP NG SCH (09:48)
[2018-08-30] MEDS: DOCUSATE SODIUM 100 MG CAPSULE PO SCH ×2 (09:49→21:18)
[2018-08-30] MEDS: FAMOTIDINE 10 MG/ML 2 ML VIAL IVP SCH (09:49)
[2018-08-30] MEDS: METOPROLOL TARTRATE 25 MG TABLET PO SCH ×2 (09:49→21:18)
[2018-08-30] MEDS ORDERED: FUROSEMIDE 40 MG/4 ML VIAL IVP ONE (10:15)
[2018-08-30] MEDS: LORazepam 2 MG/ML VIAL IVP PRN (15:20)
[2018-08-30] MEDS: ACETAMINOPHEN 325 MG TABLET PO PRN (16:31)
[2018-08-30 17:04] LABS: GLUCOSE,POINT OF CARE 106 MG/DL (70-110)
[2018-08-30 20:19] LABS: GLUCOSE,POINT OF CARE 108 MG/DL (70-110)
[2018-08-31] VITALS (8 sets, daily range): BP systolic 132–161; BP diastolic 50–74
[2018-08-31] MEDS: MORPHINE SULFATE 2 MG/ML SYRINGE IVP PRN ×2 (01:21→12:22)
[2018-08-31] MEDS: PIPERACILLIN SODIUM/TAZOBACTAM 2.25 GM in DEXTROSE 5%-WATER 50 ML IV SCH ×4 (02:53→20:43)
[2018-08-31 05:38] LABS: ALBUMIN 1.5 g/dL (3.4-5.0); BILIRUBIN,TOTAL 0.4 mg/dL (0.1-1.0); CALCIUM, TOTAL 8.5 mg/dL (8.8-10.5); CREATININE 1.65 mg/dL (0.60-1.30); POTASSIUM 4.3 mmol/L (3.5-5.1); TOTAL PROTEIN, SERUM 5.8 g/dL (6.4-8.2)
[2018-08-31 05:49] LABS: GLUCOSE,POINT OF CARE 95 MG/DL (70-110)
[2018-08-31 07:01] LABS: BASOPHILS % (AUTO) 0.6 % (0.0-2.0); EOSINOPHILS % (AUTO) 1.3 % (1.0-6.0); HEMATOCRIT 22.9 % (36-46); HEMOGLOBIN 7.4 g/dL (12.0-16.0); LYMPHOCYTES # (AUTO) 1.6 K/uL (1.0-4.8); LYMPHOCYTES % (AUTO) 12.2 % (22.0-44.0); MEAN CORPUSCULAR HEMOGLOBIN 29.9 pg (26.0-34.0); MEAN CORPUSCULAR HGB CONC 32.2 G/dL (31.0-37.0); MEAN CORPUSCULAR VOLUME 93 fL (80-100); MONOCYTES % (AUTO) 7.7 % (2.0-9.0); NEUTROPHILS # (AUTO) 10.4 K/uL (1.8-7.7); NEUTROPHILS % (AUTO) 78.2 % (40.0-70.0); PLATELET COUNT (AUTO) 169 K/uL (150-450); RED BLOOD CELL COUNT(AUTO) 2.47 MIL/uL (4.00-5.20)
[2018-08-31] MEDS: POVIDONE-IODINE 10% 120 ML SOLUTION TP SCH (09:00)
[2018-08-31] MEDS: FAMOTIDINE 10 MG/ML 2 ML VIAL IVP SCH (09:13)
[2018-08-31] MEDS: DOCUSATE SODIUM 100 MG CAPSULE PO SCH ×2 (09:13→20:43)
[2018-08-31] MEDS: METOPROLOL TARTRATE 25 MG TABLET PO SCH ×2 (09:13→20:44)
[2018-08-31] MEDS: MULTIVITAMINS WITH MINERALS, THERAPEUTIC 15 ML UDCUP NG SCH (09:14)
[2018-08-31] MEDS: HydrALAZINE HCL 20 MG/ML VIAL IVP PRN (11:34)
[2018-08-31 12:48] LABS: GLUCOSE,POINT OF CARE 96 MG/DL (70-110)
[2018-08-31] MEDS: ACETAMINOPHEN 325 MG TABLET PO PRN (19:55)
[2018-08-31 22:54] LABS: GLUCOSE,POINT OF CARE 90 MG/DL (70-110)
[2018-09-01] VITALS (10 sets, daily range): BP systolic 139–167; BP diastolic 52–73
[2018-09-01 00:29] LABS: GLUCOSE,POINT OF CARE 88 MG/DL (70-110)
[2018-09-01] MEDS: PIPERACILLIN SODIUM/TAZOBACTAM 2.25 GM in DEXTROSE 5%-WATER 50 ML IV SCH (02:31)
[2018-09-01] MEDS: HydrALAZINE HCL 20 MG/ML VIAL IVP PRN (03:01)
[2018-09-01] MEDS: ACETAMINOPHEN 325 MG TABLET PO PRN (04:02)
[2018-09-01 05:08] LABS: BASOPHILS % (AUTO) 0.3 % (0.0-2.0); EOSINOPHILS % (AUTO) 1.1 % (1.0-6.0); HEMATOCRIT 23.9 % (36-46); HEMOGLOBIN 7.6 g/dL (12.0-16.0); LYMPHOCYTES # (AUTO) 1.3 K/uL (1.0-4.8); LYMPHOCYTES % (AUTO) 10.8 % (22.0-44.0); MEAN CORPUSCULAR HEMOGLOBIN 29.9 pg (26.0-34.0); MEAN CORPUSCULAR HGB CONC 31.8 G/dL (31.0-37.0); MEAN CORPUSCULAR VOLUME 94 fL (80-100); MONOCYTES % (AUTO) 8.5 % (2.0-9.0); NEUTROPHILS # (AUTO) 9.7 K/uL (1.8-7.7); NEUTROPHILS % (AUTO) 79.3 % (40.0-70.0); PLATELET COUNT (AUTO) 153 K/uL (150-450); RED BLOOD CELL COUNT(AUTO) 2.54 MIL/uL (4.00-5.20)
[2018-09-01 05:15] LABS: CALCIUM, TOTAL 8.7 mg/dL (8.8-10.5); CREATININE 1.6 mg/dL (0.60-1.30); POTASSIUM 3.9 mmol/L (3.5-5.1)
[2018-09-01] MEDS: MORPHINE SULFATE 2 MG/ML SYRINGE IVP PRN (05:22)
[2018-09-01 06:40] LABS: GLUCOSE,POINT OF CARE 103 MG/DL (70-110)
[2018-09-01] MEDS: METOPROLOL TARTRATE 25 MG TABLET PO SCH ×2 (08:52→21:41)
[2018-09-01] MEDS: POVIDONE-IODINE 10% 120 ML SOLUTION TP SCH (08:53)
[2018-09-01] MEDS: FAMOTIDINE 10 MG/ML 2 ML VIAL IVP SCH (08:53)
[2018-09-01] MEDS: DOCUSATE SODIUM 100 MG CAPSULE PO SCH ×2 (08:54→21:00)
[2018-09-01] MEDS: MULTIVITAMINS WITH MINERALS, THERAPEUTIC 15 ML UDCUP NG SCH (08:54)
[2018-09-01] MEDS ORDERED: SODIUM CHLORIDE 0.9% 250 ML IV ONE (11:13)
[2018-09-01 12:04] LABS: GLUCOSE,POINT OF CARE 98 MG/DL (70-110)
[2018-09-01 17:19] LABS: GLUCOSE,POINT OF CARE 116 MG/DL (70-110)
[2018-09-02] VITALS (7 sets, daily range): BP systolic 135–179; BP diastolic 61–84
[2018-09-02 07:29] LABS: CREATININE 1.31 mg/dL (0.60-1.30); MAGNESIUM 1.9 mg/dL (1.80-2.40); PHOSPHORUS 1.9 mg/dL (2.5-4.9); POTASSIUM 3.9 mmol/L (3.5-5.1)
[2018-09-02] MEDS: ACETAMINOPHEN 325 MG TABLET PO PRN (08:30)
[2018-09-02] MEDS: METOPROLOL TARTRATE 25 MG TABLET PO SCH ×2 (08:30→22:06)
[2018-09-02] MEDS: DOCUSATE SODIUM 100 MG CAPSULE PO SCH ×2 (08:30→21:00)
[2018-09-02] MEDS: POVIDONE-IODINE 10% 120 ML SOLUTION TP SCH (09:57)
[2018-09-02] MEDS: MULTIVITAMINS WITH MINERALS, THERAPEUTIC 15 ML UDCUP NG SCH (09:58)
[2018-09-02] MEDS: FAMOTIDINE 10 MG/ML 2 ML VIAL IVP SCH (09:58)
[2018-09-02 10:14] LABS: GLUCOMETER DEV NAME(LOC) 5N.2; GLUCOSE,POINT OF CARE 104 MG/DL (70-110)
[2018-09-02] MEDS ORDERED: SODIUM PHOS,M-BASIC-D-BASIC 10 MMOL in DEXTROSE 5%-WATER 100 ML IV ONE (10:15)
[2018-09-03] VITALS (8 sets, daily range): BP systolic 152–173; BP diastolic 61–82
[2018-09-03 04:24] LABS: GLUCOMETER DEV NAME(LOC) 5N.2; GLUCOSE,POINT OF CARE 104 MG/DL (70-110)
[2018-09-03 04:24] LABS: GLUCOMETER DEV NAME(LOC) 5N.2; GLUCOSE,POINT OF CARE 101 MG/DL (70-110)
[2018-09-03 08:22] LABS: BASOPHILS % (AUTO) 0.3 % (0.0-2.0); EOSINOPHILS % (AUTO) 1.1 % (1.0-6.0); HEMATOCRIT 25.1 % (36-46); LYMPHOCYTES # (AUTO) 1.4 K/uL (1.0-4.8); LYMPHOCYTES % (AUTO) 11.2 % (22.0-44.0); MEAN CORPUSCULAR HEMOGLOBIN 29.8 pg (26.0-34.0); MEAN CORPUSCULAR VOLUME 93 fL (80-100); MONOCYTES # (AUTO) 1.2 K/uL (0.1-1.0); MONOCYTES % (AUTO) 9.6 % (2.0-9.0); NEUTROPHILS # (AUTO) 9.9 K/uL (1.8-7.7); NEUTROPHILS % (AUTO) 77.8 % (40.0-70.0); PLATELET COUNT (AUTO) 137 K/uL (150-450); RED CELL DISTRIBUTION WIDTH 18.7 % (11.5-14.5)
[2018-09-03 08:40] LABS: CALCIUM, TOTAL 8.9 mg/dL (8.8-10.5); CREATININE 1.36 mg/dL (0.60-1.30); PHOSPHORUS 2.2 mg/dL (2.5-4.9); POTASSIUM 3.8 mmol/L (3.5-5.1)
[2018-09-03] MEDS: DOCUSATE SODIUM 100 MG CAPSULE PO SCH ×2 (08:42→21:00)
[2018-09-03] MEDS: POVIDONE-IODINE 10% 120 ML SOLUTION TP SCH (08:44)
[2018-09-03] MEDS: MULTIVITAMINS WITH MINERALS, THERAPEUTIC 15 ML UDCUP NG SCH (08:44)
[2018-09-03] MEDS: FAMOTIDINE 10 MG/ML 2 ML VIAL IVP SCH (08:44)
[2018-09-03] MEDS: METOPROLOL TARTRATE 25 MG TABLET PO SCH ×2 (08:44→21:19)
[2018-09-03] MEDS ORDERED: SODIUM PHOS,M-BASIC-D-BASIC 30 MMOL in DEXTROSE 5%-WATER 250 ML IV ONE (10:15)
[2018-09-03 11:14] LABS: GLUCOMETER DEV NAME(LOC) 5S.1; GLUCOSE,POINT OF CARE 85 MG/DL (70-110)
[2018-09-03] MEDS: HydrALAZINE HCL 20 MG/ML VIAL IVP PRN ×2 (11:22→16:17)
[2018-09-03] MEDS: ACETAMINOPHEN 325 MG TABLET PO PRN ×2 (11:22→16:19)
[2018-09-03 15:00] LABS: GLUCOMETER DEV NAME(LOC) 5S.1; GLUCOSE,POINT OF CARE 105 MG/DL (70-110)
[2018-09-03 23:01] LABS: APPEARANCE,URINE CLEAR (CLEAR); BILIRUBIN,URINE NEGATIVE (NEGATIVE); GLUCOSE, URINE (UA) NEGATIVE (NEGATIVE); KETONES,URINE NEGATIVE (NEGATIVE); LEUKOCYTE ESTERASE ,URINE NEGATIVE (NEGATIVE); NITRATE,URINE NEGATIVE (NEGATIVE); OCCULT BLOOD,URINE NEGATIVE (NEGATIVE); PH,URINE 6.5 (5.0-8.0); PROTEIN,URINE TRACE (NEGATIVE); UROBILINOGEN,URINE 0.2 mg/dL (<=1.0)
[2018-09-03 23:07] LABS: BACTERIA,URINE None Seen /HPF (None Seen); RBC,URINE 0-2 /HPF (0-2); SQUAMOUS EPITHELIAL CELL,UR Moderate /LPF (None Seen); WBC,URINE 0-2 /HPF (0-5)
[2018-09-04 04:55] VITALS: BP 159/81
[2018-09-04 05:49] LABS: GLUCOMETER DEV NAME(LOC) 5S.1; GLUCOSE,POINT OF CARE 98 MG/DL (70-110)
[2018-09-04 08:25] VITALS: BP 143/81
[2018-09-04] MEDS: DOCUSATE SODIUM 100 MG CAPSULE PO SCH (09:00)
[2018-09-04] MEDS: MULTIVITAMINS WITH MINERALS, THERAPEUTIC 15 ML UDCUP NG SCH (09:55)
[2018-09-04] MEDS: METOPROLOL TARTRATE 25 MG TABLET PO SCH (09:55)
[2018-09-04] MEDS: FAMOTIDINE 10 MG/ML 2 ML VIAL IVP SCH (09:55)
[2018-09-04] MEDS: POVIDONE-IODINE 10% 120 ML SOLUTION TP SCH (09:56)
[2018-09-04 12:14] VITALS: BP 157/64
[2018-09-04] MEDS: HydrALAZINE HCL 20 MG/ML VIAL IVP PRN (12:42)
[2018-09-04 16:23] VITALS: BP 157/61
[2018-09-04 16:34] LABS: GLUCOMETER DEV NAME(LOC) 5S.1; GLUCOSE,POINT OF CARE 97 MG/DL (70-110)
[2018-09-04 16:35] LABS: GLUCOMETER DEV NAME(LOC) 5S.1; GLUCOSE,POINT OF CARE 98 MG/DL (70-110)
[2018-09-04] MEDS ORDERED: DSS100 PO (17:17)
[2018-09-04] MEDS ORDERED: FAMO20 IVP (17:18)
[2018-09-04] MEDS ORDERED: MULT1TAB61 GT (17:19)
[2018-09-04] MEDS ORDERED: [UNRECOGNIZED DRUG - CODE] TP (17:19)
[2018-09-04] MEDS ORDERED: BISA10SU11 PR (17:20)
[2018-09-04] MEDS ORDERED: HYDR-4061 PO (17:20)
[2018-09-04] MEDS ORDERED: HYDR20I IVP (17:21)
[2018-09-04] MEDS ORDERED: INSU100V SQ (17:22)
[2018-09-04] MEDS ORDERED: LORA1TAB3 IVP (17:22)
[2018-09-04] MEDS ORDERED: MOM30 PO (17:22)
[2018-09-04] MEDS ORDERED: ONDA4 IVP (17:23)
[2018-09-04] MEDS ORDERED: MORP2CAR IV (17:23)
[2018-09-05] MEDS ORDERED: LACTOBACILLUS ACIDOPHILUS/BULGARICUS GRANULES PACKET GT SCH (09:00)
== END 2018-09-04 16:10 | DRG 4 ==
LOC: EMS 07:09 → ICU 13:46 → 5N 18:10 → ICU 18:38 → 5S 09-01 20:20
PROVIDERS: ADMIT Internal Medicine; ATTEND Internal Medicine
PROC: 0BH17EZ Insertion of Endotracheal Airway into Trachea, Via Natural or Artificial Opening (ICD-10-PCS; 2018-08-17)
PROC: 5A1955Z Respiratory Ventilation, Greater than 96 Consecutive Hours (ICD-10-PCS; 2018-08-17)
PROC: 06HY33Z Insertion of Infusion Device into Lower Vein, Percutaneous Approach (ICD-10-PCS; 2018-08-17)
PROC: B44FZZ3 Ultrasonography of Right Lower Extremity Arteries, Intravascular (ICD-10-PCS; 2018-08-17)
PROC: 30233N1 Transfusion of Nonautologous Red Blood Cells into Peripheral Vein, Percutaneous Approach (ICD-10-PCS; 2018-08-21)
PROC: 05HY33Z Insertion of Infusion Device into Upper Vein, Percutaneous Approach (ICD-10-PCS; 2018-08-24)
PROC: B34JZZ3 Ultrasonography of Left Upper Extremity Arteries, Intravascular (ICD-10-PCS; 2018-08-24)
PROC: 0B110F4 Bypass Trachea to Cutaneous with Tracheostomy Device, Open Approach (ICD-10-PCS; principal; 2018-08-29 11:00)
DX: A41.9 Sepsis, unspecified organism (principal); L89.894 Pressure ulcer of other site, stage 4; N17.0 Acute kidney failure with tubular necrosis; J10.08 Influenza due to other identified influenza virus with other specified pneumonia; G93.41 Metabolic encephalopathy; J18.1 Lobar pneumonia, unspecified organism; R65.21 Severe sepsis with septic shock; E43 Unspecified severe protein-calorie malnutrition; J96.01 Acute respiratory failure with hypoxia; E87.4 Mixed disorder of acid-base balance; E87.0 Hyperosmolality and hypernatremia; L97.919 Non-pressure chronic ulcer of unspecified part of right lower leg with unspecified severity; I47.1 Supraventricular tachycardia; Z99.11 Dependence on respirator [ventilator] status; I47.2 Ventricular tachycardia; R13.10 Dysphagia, unspecified; R73.9 Hyperglycemia, unspecified; E87.5 Hyperkalemia; E87.6 Hypokalemia; D63.8 Anemia in other chronic diseases classified elsewhere; E78.5 Hyperlipidemia, unspecified; F01.50 Vascular dementia, unspecified severity, without behavioral disturbance, psychotic disturbance, mood disturbance, and anxiety; I10 Essential (primary) hypertension; K21.9 Gastro-esophageal reflux disease without esophagitis; R62.7 Adult failure to thrive; B96.20 Unspecified Escherichia coli [E. coli] as the cause of diseases classified elsewhere; B95.2 Enterococcus as the cause of diseases classified elsewhere; F32.9 Major depressive disorder, single episode, unspecified; M24.50 Contracture, unspecified joint; E83.39 Other disorders of phosphorus metabolism; Z51.5 Encounter for palliative care; Z88.8 Allergy status to other drugs, medicaments and biological substances; Z86.73 Personal history of transient ischemic attack (TIA), and cerebral infarction without residual deficits; Z74.01 Bed confinement status; Z93.1 Gastrostomy status; Z68.38 Body mass index [BMI] 38.0-38.9, adult; Z88.0 Allergy status to penicillin; Z90.12 Acquired absence of left breast and nipple; Z85.3 Personal history of malignant neoplasm of breast; Z90.711 Acquired absence of uterus with remaining cervical stump
CPT/HCPCS: 31500; 36556; 36569; 36600; 51702; 70450; 71250; 73503; 74176; 76937; 82805; 82948; 83605; 83735; 84100; 84132; 84145; 86850; 86900; 86901; 86920; 87040; 87070; 87081; 87205; 87804; 93005; 94002; 94003; 96365; 96366; 96368; 99291; C9113; G0378; G0480; J0131; J0153; J0330; J0360; J0610; J0690; J1644; J1815; J1940; J1956; J2060; J2250; J2270; J2370; J2405; J2543; J2704; J3370; J3480; J3490; J7040; J7050; J7060; P9016